=== PATIENT | female | born 1950 | race Caucasian/White ===

== ENCOUNTER → 2020-05-05 | Outpatient (CLI) | payer OTHER ==
[~2020-05-05] MED LIST: CHOL10003 PO; DEXT-230 PO; DICL100G25 TP; INSU100V11 SC; KETO5DRO70 EACHEYE; LORA10TA75 PO; MULT-658 PO; NPH,100V5 SC; OMEP20TA62 PO; POLY15DR8 EACHEYE; SIMV20TA19 PO; calcium PO; dextrose PO
[2020-05-05 15:22] LABS: BASOPHILS # (AUTO) 0.01 x10^3/uL (0-0.1); BASOPHILS % (AUTO) 0 % (0-1); EOSINOPHILS # (AUTO) 0.27 x10^3/uL (0-0.4); EOSINOPHILS % (AUTO) 3 % (1-7); LYMPHOCYTES # (AUTO) 2.97 x10^3/uL (1-3.4); LYMPHOCYTES % (AUTO) 29 % (22-44); MD NO; MEAN CORPUSCULAR HEMOGLOBIN 28.9 pg (27.0-34.8); MEAN CORPUSCULAR HGB CONC 32.7 g/dL (32.4-35.8); MEAN CORPUSCULAR VOLUME 88.4 fL (80-100); MEAN PLATELET VOLUME 9.6 fL (7.4-10.4); MONOCYTES # (AUTO) 0.85 x10^3/uL (0.2-0.8); MONOCYTES % (AUTO) 8 % (2-9); NEUTROPHILS # (AUTO) 6.03 x10^3/uL (1.8-6.8); NEUTROPHILS % (AUTO) 60 % (42-75); PLATELET COUNT 293 x10^3/uL (130-400); RED BLOOD COUNT 5.05 x10^6/uL (3.82-5.3); RED CELL DISTRIBUTION WIDTH 13.4 % (9.6-15.2)
[2020-05-05 15:30] LABS: MICROSCOPIC AUTO
[2020-05-05 15:35] LABS: ALANINE AMINOTRANSFERASE 20 U/L (12-78); ALBUMIN 3.6 g/dL (3.4-5.0); ANION GAP 6 mmol/L (5-15); CALCIUM 9.4 mg/dL (8.5-10.1); CHLORIDE 98 mmol/L (98-107); CREATININE 1.36 mg/dL (0.55-1.02)
[2020-05-05 15:37] LABS: ALKALINE PHOSPHATASE 137 U/L (45-117); BILIRUBIN,TOTAL 0.4 mg/dL (0.2-1.0); TOTAL PROTEIN 7.8 g/dL (6.4-8.2)
== END | disposition home or self-care (01) ==
LOC: STAR 13:58
PROVIDERS: ATTEND Urology
DX: Z01.818 Encounter for other preprocedural examination (principal); C66.9 Malignant neoplasm of unspecified ureter; R00.0 Tachycardia, unspecified
CPT/HCPCS: 36415; 80053; 81001; 85025; 87086; 93005

== ENCOUNTER 2020-05-13 09:46 | Day surgery (SDC) | payer OTHER ==
[~2020-05-13] VITALS: Ht 172.7 cm; Wt 69.9 kg
[2020-05-13] MEDS ORDERED: LACTATED RINGERS 1,000 ML IV SCH (10:47)
[2020-05-13] MEDS ORDERED: CIPR500T3 PO (10:55)
[2020-05-13] MEDS ORDERED: CHLORHEXIDINE 15 ML UDC MM ONE (11:00)
[2020-05-13] MEDS ORDERED: CEFTRIAXONE 1,000 MG ONE (12:18)
[2020-05-13] MEDS ORDERED: ROPIvacaine/PF 0.2%, 20 ML ONE (13:23)
[2020-05-13] MEDS ORDERED: PROPOFOL 10 MG/ML, 20ML ONE ×2 (13:23)
[2020-05-13] MEDS ORDERED: ROCURONIUM 10MG/ML,5ML ONE (13:24)
[2020-05-13] MEDS ORDERED: EPHEDRINE 50 MG/ML, 1ML ONE (13:43)
[2020-05-13] MEDS ORDERED: LIDOCAINE-MPF 2% ,5ML ONE (13:43)
[2020-05-13] MEDS ORDERED: FENTANYL PF 100 MCG/2ML ONE ×2 (13:44→15:00)
[2020-05-13] MEDS ORDERED: METOPROLOL 1 MG/ML, 5ML ONE (14:46)
[2020-05-13] MEDS ORDERED: SUGAMMADEX 200 MG/2 ML IVPush ONE (14:47)
[2020-05-13] MEDS ORDERED: OXYcodone 5 MG/5 ML ORAL.SOL UDC PO PRN (15:00)
[2020-05-13] MEDS ORDERED: FENTANYL PF 100 MCG/2ML IV PRN (15:00)
[2020-05-13] MEDS ORDERED: HYDROmorphone 1 MG/ML, 1ML INJ IVPush PRN (15:00)
[2020-05-13] MEDS ORDERED: PROMETHAZINE 25 MG/ML, 1ML ONE (15:00)
[2020-05-13] MEDS ORDERED: morphine SULFATE 10 MG/ML, 1ML IVPush PRN (15:00)
[2020-05-13] MEDS ORDERED: HYDROcodone/APAP 7.5-325MG/15ML UDC PO PRN (15:00)
[2020-05-13] MEDS ORDERED: PROMETHAZINE 25 MG SUPP PR PRN (15:30)
[2020-05-13] MEDS ORDERED: PROMETHAZINE 25 MG/ML, 1ML IVPush PRN (15:30)
[2020-05-13] MEDS ORDERED: LABETALOL 5MG/ML, 20ML ONE (15:33)
== END 2020-05-13 16:47 | disposition home or self-care (01) ==
LOC: OUT 09:46
PROVIDERS: ATTEND Urology
DX: Z46.6 Encounter for fitting and adjustment of urinary device (principal); Z11.59 Encounter for screening for other viral diseases; C66.1 Malignant neoplasm of right ureter; N39.0 Urinary tract infection, site not specified; F17.210 Nicotine dependence, cigarettes, uncomplicated; Z79.4 Long term (current) use of insulin; Z79.899 Other long term (current) drug therapy; Z88.2 Allergy status to sulfonamides; Z88.8 Allergy status to other drugs, medicaments and biological substances; Z91.030 Bee allergy status; Z91.040 Latex allergy status; Z83.3 Family history of diabetes mellitus; Z82.49 Family history of ischemic heart disease and other diseases of the circulatory system
CPT/HCPCS: 36415; 52354; 74018; 82962; 87635; 88305; C1769; J0696; J2704; J7120; 76000; J2795; J3010